=== PATIENT | female | born 1995 | race Two or more races ===

== ENCOUNTER 2017-06-20 14:57 | Emergency (ER) | payer SELFPAY ==
[~2017-06-20] VITALS: Ht 167.6 cm; Wt 73.9 kg
[2017-06-20] MEDS ORDERED: NKM (15:07)
--- NOTE | 2017-06-20 15:20 | Emergency Room Report ---
History of Present Illness General Chief Complaint: Pain Source: Patient Present Illness HPI 22 yo female presents to ER complaining of right finger pain x 1hour. Patient reports her fingernail got stuck in a door and her fingernail was "ripped clean out". Patient denies closing door on finger. Patient denies pain with hand movement; denies loss of function of hand. Patient denies use of medication for pain. Denies history of similar injuries. Patient denies fever, chest pain, SOB, rash, nausea, vomiting. Allergies: Coded Allergies: No Known Allergies (Unverified , 06/20/17) Patient History Social History: Reports: smoking Last Menstrual Period: One week ago Now: No Reviewed Nursing Documentation: PMH: Agreed, PSxH: Agreed Nursing Documentation-PMH Past Medical History: No Stated History Review of Systems All Other Systems: negative except mentioned in HPI Physical Exam Vital Signs Date Time Temp Pulse Resp B/P (MAP) Pulse Ox O2 Delivery O2 Flow Rate FiO2 06/20/17 15:01 98.2 77 16 127/83 96 Room Air Sp02 EP Interpretation: reviewed, normal General Appearance: no apparent distress, alert, GCS 15, non-toxic Head: normocephalic, atraumatic Eyes: bilateral eye normal inspection, bilateral eye PERRL Neck: full range of motion, supple/symm/no masses Respiratory: chest non-tender, lungs clear, normal breath sounds, speaking full sentences Cardiovascular #1: regular rate, rhythm, no edema Cardiovascular #2: 2+ radial (R), 2+ radial (L) Musculoskeletal: back normal, gait/station normal, normal range of motion, other - right ring finer: absent nail, nail bed intact, dried blood around edge of nail, no active bleeding, mild erythema, no edema, no ecchymosis, [employer] <2sec, tender - right nail bed Neurologic: alert, oriented x3, responsive, motor strength/tone normal, sensory intact, speech normal Psychiatric: mood/affect normal Skin: normal color, no rash, warm/dry, well hydrated Lymphatic: no adenopathy Medical Decision Making PA Attestation Dr. Thomas is my supervising Physician whom patient management has been discussed with. Diagnostic Impression: Primary Impression: Absence, nail ER Course Pt. presents to the ED c/o finger nail being "ripped out". Ddx considered but are not limited to fingernail absence, rupture nailbed, nail avulsion, laceration, cellulitis. Patient does not require x-rays of hand, no trauma to finger, full ROM. Vital signs: are WNL, pt. is afebrile ORDERS: None required at this time, the diagnosis is clinical ED INTERVENTIONS: Patient provided [place] for pain. Patient wound dressed cleaned and bandaged in sterile dressing with bacitracin. Patient finger placed in finger splint. Patient states understanding and agreement to treatment plan. DISCHARGE: -Rx provided for Ibuprofen. At this time pt. is stable for d/c to home. Will provide printed patient care instructions, and any necessary prescriptions. Patient instructed to complete current course of antibiotics. Care plan and follow up instructions have been discussed with the patient prior to discharge. Patient instructed to follow-up with primary care provider in 3 - 5 days and discuss further referral Patient questions asked and answered. ER precautions given. Patient instructed to return to ER immediately for any new or worsening of symptoms including but not limited to increasing SOB, persistent fever, intractable vomiting, calf pain. Last Vital Signs Date Time Temp Pulse Resp B/P (MAP) Pulse Ox O2 Delivery O2 Flow Rate FiO2 06/20/17 15:01 98.2 77 16 127/83 96 Room Air Disposition: HOME, SELF-CARE Condition: Stable Scripts Ibuprofen* (MOTRIN*) 600 Mg Tablet 600 MG ORAL Q8H Y for For Pain, #30 TAB 0 Refills Prov: Juan Trevino 06/20/17 Patient Instructions: Nail Avulsion Additional Instructions: Followup with primary care provider in 3 -5 days. Take medications as directed. Patient questions asked and answered. ER precautions given, patient instructed to return to ER immediately for any new or worsening of symptoms. Juan Trevino Jun 20, 2017 15:20
[2017-06-20] MEDS ORDERED: Norco 5mg/325mg tab ORAL ONE (15:30)
[2017-06-20] MEDS ORDERED: IBUPROFEN600 MG ORAL (15:40)
[2017-06-20] MEDS ORDERED: Bacitracin Oint UD TOPIC ONE (15:45)
[2017-06-20 16:00] VITALS: BP 127/83
[2017-06-20 17:07] VITALS: BP 127/83
== END 2017-06-20 17:17 | disposition home or self-care (01) ==
LOC: EMR 15:55
DX: M79.644 Pain in right finger(s) (principal); F17.200 Nicotine dependence, unspecified, uncomplicated; S60.944A Unspecified superficial injury of right ring finger, initial encounter; W23.0XXA Caught, crushed, jammed, or pinched between moving objects, initial encounter; Y92.9 Unspecified place or not applicable
CPT/HCPCS: 99283